=== PATIENT | male | born 1975 | race Caucasian/White ===

== ENCOUNTER 2023-08-31 20:28 | Emergency (ER) | payer OTHER ==
[~2023-08-31] VITALS: Ht 170.2 cm; Wt 73.0 kg
[2023-08-31 21:05] VITALS: BP 138/94; PULSE 88; RESP 16; TEMP 98.3; O2SAT 98
[2023-08-31] MEDS ORDERED: BACITRACIN ZINC OINT UDPKT TOP ONE (22:30)
[2023-08-31] MEDS ORDERED: LIDOCAINE HCL/PF 1% 10 MG/ML 5ML VIAL INFIL ONE (22:30)
== END 2023-08-31 23:16 | disposition home or self-care (01) ==
LOC: ER 20:28
DX: S61.412A Laceration without foreign body of left hand, initial encounter (principal); Z88.5 Allergy status to narcotic agent; X58.XXXA Exposure to other specified factors, initial encounter; Y93.89 Activity, other specified; Y92.89 Other specified places as the place of occurrence of the external cause; Y99.8 Other external cause status
CPT/HCPCS: 12001; 99282; J3490; Z7610